=== PATIENT | male | born 1980 | race Caucasian/White ===

== ENCOUNTER 2024-09-22 02:56 | Emergency (ER) | payer BC ==
[2024-09-22] MEDS ORDERED: Ketorolac Tromethamine 30 MG (1 mL) VIAL ONE (04:04)
[2024-09-22] MEDS ORDERED: Cyclobenzaprine 10 MG TAB ONE (04:05)
== END 2024-09-22 05:17 | disposition home or self-care (01) ==
LOC: CSHERS 02:56
DX: S22.32XA Fracture of one rib, left side, initial encounter for closed fracture (principal); W19.XXXA Unspecified fall, initial encounter; Y93.72 Activity, wrestling
CPT/HCPCS: 71250; 72131; 96372; J1885